=== PATIENT | female | born 2000 ===

== ENCOUNTER 2022-02-07 09:13 | Outpatient (CLI) | payer OTHER | END 2022-02-07 11:15 | disposition home or self-care (01) | LOC: PRENATAL 09:13 | PROVIDERS: ATTEND Obstetrics & Gynecology Maternal & Fetal Medicine | DX: O35.3XX0 Maternal care for (suspected) damage to fetus from viral disease in mother, not applicable or unspecified (principal); O35.9XX0 Maternal care for (suspected) fetal abnormality and damage, unspecified, not applicable or unspecified; Z3A.24 24 weeks gestation of pregnancy ==